=== PATIENT | male | born 1995 | race Caucasian/White ===

== ENCOUNTER 2018-07-09 11:10 | Emergency (ER) | payer MEDICAID | END 2018-07-09 11:45 | disposition home or self-care (01) | LOC: FTE 11:10 | DX: H66.91 Otitis media, unspecified, right ear (principal); J06.9 Acute upper respiratory infection, unspecified | CPT/HCPCS: 99282; Z7502 ==

== ENCOUNTER 2018-07-11 10:10 | Emergency (ER) | payer MEDICAID ==
[2018-07-11] MEDS: HYDROCODONE/APAP (5/325) TAB PO (11:56)
== END 2018-07-11 12:02 | disposition home or self-care (01) ==
LOC: FTE 12:02
DX: J02.9 Acute pharyngitis, unspecified (principal); H92.01 Otalgia, right ear
CPT/HCPCS: 99283; Z7502